=== PATIENT | male | born 1965 | race Caucasian/White ===

== ENCOUNTER 2016-07-28 21:20 | Emergency (ER) | payer OTHER ==
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
[~2016-07-28 21:20] MED LIST: FLEXERIL10 MG PO; NAPROXEN PO; NO MEDICATIONS; PERCOCET 10/31 UDTA1 PO
== END 2016-07-29 01:00 | disposition home or self-care (01) ==
LOC: CED 21:20
DX: S01.411A Laceration without foreign body of right cheek and temporomandibular area, initial encounter (principal); S02.40CA Maxillary fracture, right side, initial encounter for closed fracture; F17.210 Nicotine dependence, cigarettes, uncomplicated; W22.8XXA Striking against or struck by other objects, initial encounter; Y92.410 Unspecified street and highway as the place of occurrence of the external cause
CPT/HCPCS: 70450; 70486; 72125; 73562; 96372; 99283; G0480; J1885